=== PATIENT | female | born 1965 | race Caucasian/White ===

== ENCOUNTER 2021-08-08 10:42 | Observation (INO) | payer BC ==
[~2021-08-08] VITALS: Ht 165.1 cm; Wt 92.5 kg
[2021-08-08] MEDS ORDERED: NS 2,830 ML in IV 1 EA IV ONE (11:15)
[2021-08-08] MEDS ORDERED: cefTRIAXone SOD 2 GM in D5W MINI-BAG PLUS 50 ML IV ONE (11:15)
[2021-08-08 11:19] LABS: VENOUS BASE EXCESS -0.9 (-2.0-2.0); VENOUS HCO3 21.6 MEQ/L (23.0-27.0); VENOUS O2 SATURATION 87.9 % (60.0-80.0); VENOUS PARTIAL PRESSURE CO2 30.5 mmHg (38.0-50.0); VENOUS PARTIAL PRESSURE O2 50.8 mmHg (30.0-50.0); VENOUS PH 7.469 UNITS (7.330-7.430); VENOUS STANDARD HCO3 23.5 MEQ/L; VENOUS TOTAL CO2 22.6 MEQ/L (24.0-28.0)
--- NOTE | 2021-08-08 11:21 | REP ---
INDICATION: DYSPNEA/COUGH COMPARISON: None. TECHNIQUE: Portable AP view of the chest FINDINGS: The mediastinum and cardiac silhouette are within normal limits for portable technique. The lung higgins are clear without acute consolidation, effusion, or pneumothorax. Skeletal structures are intact. IMPRESSION: No acute cardiopulmonary process appreciated. <Electronically signed by El Navarro > 08/08/21 1119
[2021-08-08 11:26] LABS: BASO # 0.1 10^3/uL (0.0-0.2); BASO % 0.5 % (0.0-1.0); EOS % 0.4 % (0.0-3.0); HEMOGLOBIN 14.4 g/dl (12.0-15.5); LYMPH # 1.1 10^3/uL (1.5-5.0); LYMPH % 11.4 % (24.0-44.0); MEAN CORPUSCULAR HEMOGLOBIN 31.2 pg (27.0-33.0); MEAN CORPUSCULAR HGB CONC 34.3 g/dl (32.0-36.5); MEAN CORPUSCULAR VOLUME 90.9 fl (80.0-96.0); MONO # 1.4 10^3/uL (0.0-0.8); NEUTROPHILS # 6.9 10^3/uL (1.5-8.5); NEUTROPHILS % 72.1 % (36.0-66.0); PLATELET COUNT, AUTOMATED 261 10^3/uL (150-450); RED BLOOD COUNT 4.62 10^6/uL (4.00-5.40); WHITE BLOOD COUNT 9.6 10^3/uL (4.0-10.0)
[2021-08-08 11:55] LABS: RSV AMPLIFICATION NEGATIVE (NEGATIVE)
[2021-08-08 11:57] LABS: ALBUMIN 3.6 GM/DL (3.2-5.2); ALT/SGPT 30 U/L (12-78); BILIRUBIN,DIRECT 0.2 MG/DL (0.0-0.2); BILIRUBIN,TOTAL 0.6 MG/DL (0.2-1.0); BLOOD UREA NITROGEN 9 MG/DL (7-18); CALCIUM LEVEL 8.6 MG/DL (8.5-10.1); CARBON DIOXIDE LEVEL 21 MEQ/L (21-32); CHLORIDE LEVEL 109 MEQ/L (98-107); CREATININE FOR GFR 0.94 MG/DL (0.55-1.30); GLOMERULAR FILTRATION RATE > 60.0 (>51); GLUCOSE, FASTING 206 MG/DL (70-100); POTASSIUM SERUM 3.7 MEQ/L (3.5-5.1); SODIUM LEVEL 140 MEQ/L (136-145); THYROID STIMULATING HORMONE 0.014 uIU/ML (0.358-3.740); TOTAL PROTEIN 6.9 GM/DL (6.4-8.2)
[2021-08-08] MEDS: METOPROLOL 5 MG/5 ML VIAL IV SCH ×3 (13:07→13:51)
[2021-08-08 13:51] VITALS: BP 117/59
--- NOTE | 2021-08-08 15:32 | REP ---
INDICATION: weak COMPARISON: None. TECHNIQUE: Axial noncontrast images from the skull base to the vertex with coronal reformations. This CT examination was performed using the following dose reduction techniques: Automated exposure control, adjustment of mA and/or kv according to the patient's size, and use of iterative reconstruction technique. FINDINGS: The ventricles, sulci, and cisterns are normal in position and appearance. Tamayo-white differentiation is maintained. No acute intracranial hemorrhage, mass/mass effect, pathology or trauma/injury. No evidence for acute infarction. No extra-axial fluid collection. Calvarium is intact. IMPRESSION: Normal noncontrast head CT. No evidence for acute intracranial pathology or trauma/injury. <Electronically signed by El Navarro > 08/08/21 [id number]
[2021-08-08] MEDS ORDERED: GLUCOSE 4GM CHEW TABLET PO PRN (16:50)
[2021-08-08] MEDS ORDERED: GLUCAGON INJ 1MG VIAL SC PRN (16:50)
[2021-08-08] MEDS ORDERED: DEXTROSE 50% 50 ML SYRINGE IV PRN (16:50)
[2021-08-08] MEDS ORDERED: ONDANSETRON 4MG/2ML VIAL IV PRN (16:50)
[2021-08-08 17:21] LABS: INR 1.06; PROTHROMBIN TIME 14.2 SECONDS (12.7-14.5)
[2021-08-08 17:22] LABS: ALT/SGPT 26 U/L (12-78); BILIRUBIN,DIRECT < 0.1 MG/DL (0.0-0.2); BILIRUBIN,TOTAL 0.4 MG/DL (0.2-1.0); C REACTIVE PROTEIN QUANTITATIV 6.57 MG/DL (0.00-0.30); FERRITIN 186 NG/ML (8-252); NT-PRO BNP 2119 PG/ML (<125); PARTIAL THROMBOPLASTIN TIME 35.2 SECONDS (25.9-37.0); TOTAL PROTEIN 6.4 GM/DL (6.4-8.2)
[2021-08-08 17:23] LABS: C REACTIVE PROTEIN QUANTITATIV 6.9 MG/DL (0.00-0.30); MAGNESIUM LEVEL 2.1 MG/DL (1.8-2.4)
[2021-08-08 17:24] LABS: D-DIMER QUANT 1059.23 ng/ml (<500)
[2021-08-08] MEDS: HumaLOG INSULIN (NovoLOG) PER UNIT SC SCH ×2 (17:30→21:00)
[2021-08-08 17:34] LABS: MAGNESIUM LEVEL 2.1 MG/DL (1.8-2.4)
--- NOTE | 2021-08-08 17:41 | HPEPDOC ---
[facility] Medical History & Physical Date of Admission Aug 08, 2021 Date of Service: Aug 08, 2021 Attending Physician: SEBASTIEN LORA MD History and Physical CHIEF COMPLAINT: generalized weakness, dry mouth, poor PO HISTORY OF PRESENT ILLNESS: 56 yo W with a history of a pituitary tumor s/p resection not clear on the subtype, history of thyroid CA s/p thyroidectomy, likely diabetes insipidus? with cousin reporting that she is on a pill to not make her urinate so much, gastric CA s/p debulking on imatinib with patient reported dramatic reduction in tumor per her oncologist, chronic lethargy at baseline, hypothyroidism, DM and obesity who is in [place] visiting her elderly parents who live in the area for the holidays and develops generalized illness, malaise, dry mouth and diarrhea 1-2 days ago with poor PO and was eventually brought in by family. Of note, she is vaccinated for the flu, pneumovax and covid-19 but had not had her booster yet. She denies any shortness of breath, chest pain, sensation of palpitations, abdominal pain. She endorsed some nausea, had 1 non bloody non bilious emesis episode this morning, has had some non bloody diarrhea, feels weak and sleepier than her usual. In the ED, she was tachycardic to 130-150s but otherwise hemodynamically stable and per Dr. James had a spurious temp of 102 that was on immediate recheck actually wnl without a fever, normotensive and saturating well on room air. Workup was notable for respiratory panel that was positive for covid-19, CXR that was wnl without any noted effusion, infiltrates or airway disease and head C whose read is still pending but appears unremarkable on my wet read. WBC was 9.6, hgb 14.4, platelets 261, na 140, K 3.7, Cr 0.94, TSH 0.014. VBG showed a pH of 7.46. She was given 2.5L of IVF with improvement in her tachycardia as well as 1 dose of lopressor with improvement to 110s -120s. On EKG she appears to have a narrow complex junctional tachycardia and Dr. James spoke with Dr. Peck who also took a look at the EKG and recommended treating the underlying cause such as dehydration and viral infection. On my evaluation, she is lethargic but oriented fully and I am told by her cousin that is close to her baseline though she is more tired than usual. I am now admitting her to medicine for covid-19 infection with associated dehydration and encephalopathy. PAST MEDICAL HISTORY: pituitary tumor s/p resection not clear on the subtype, history of thyroid CA s/p thyroidectomy, likely diabetes insipidus? with cousin reporting that she is on a pill to not make her urinate so much, gastric CA s/p debulking on imatinib with patient reported dramatic reduction in tumor per her oncologist, chronic lethargy at baseline, hypothyroidism and obesity PAST SURGICAL HISTORY: Hysterectomy. has one ovary left. gastric tumor debulking thyroidectomy Pituitary tumor resection SOCIAL HISTORY: Marital status: Resides in: [place] Children: 2 Tobacco use: No ETOH: Rare Illicit drug use: No FAMILY HISTORY: Father: 84yo, has COPD, otherwise with some mild cognitive slowing Mother: in her 80s, healthy ALLERGIES: Please see below. REVIEW OF SYSTEMS: 10 point ROS was negative except for the discussed elements in the HPI. HOME MEDICATIONS: Please see below. PHYSICAL EXAMINATION: VITAL SIGNS: see below GENERAL APPEARANCE: Lethargic, awake on voice but requiring prompting and re- asking of questions as she falls asleep HEENT: NCAT, EOMI, dry MM, PERRLA CARDIOVASCULAR: regular rhythm, tachycardic, no noted m/r/g LUNGS: CTAB, no crackles, wheezing or rhonchi ABDOMEN: Obese, normoactive sounds, soft, NTND MUSCULOSKELETAL: 5/5 strength in all 4 limbs EXTREMITIES: WWP, no edema NEUROLOGICAL: CN3-12 intact, lethargic but full strength with encouragement, clear speech PSYCHIATRIC: AOx3 LABORATORY DATA: Reviewed above, see below for full details IMAGING: Reviewed above. CT head read: The ventricles, sulci, and cisterns are normal in position and appearance. Tamayo-white differentiation is maintained. No acute intracranial hemorrhage, mass/mass effect, pathology or trauma/injury. No evidence for acute infarction. No extra-axial fluid collection. Calvarium is intact. IMPRESSION: Normal noncontrast head CT. No evidence for acute intracranial pathology or trauma/injury. MICROBIOLOGY: Please see below. ASSESSMENT: 56 yo W with a history of a pituitary tumor s/p resection not clear on the subtype, history of thyroid CA s/p thyroidectomy, likely SIADH with cousin reporting that she is on a pill to not make her urinate so much, gastric CA s/p debulking on imatinib with patient reported dramatic reduction in tumor per her oncologist, chronic lethargy at baseline, hypothyroidism, DM and obesity who is in [place] visiting her elderly parents who live in the area for the holidays and develops generalized illness, malaise, dry mouth and diarrhea 1-2 days ago with poor PO and is now being admitted for covid-19 infection with associated dehydration and encephalopathy with a narrow complex tachycardia. PLAN: Covid-19 infection: -droplet precaution -no pulmonary symptoms at this time -s/p 30cc/kg IVF bolus, continue NS at 100cc/hr -covid labs per protocol -lovenox 40 SC QD for DVT ppx -ASA 81 QD -s/p ceftriaxone in the ED. No suspicion of bacterial infection. f/u BCx, UA/UCx. No further antibiotics at this time. -vaccinated x 2 shots, pending booster Dehydration: -s/p 30cc/kg IVF bolus, continue NS at 100cc/hr -might have a history of Diabetes insipidus? Inferred from history given by cousin sister: To confirm med rec promptly to restart med as delay of med will precipitate continuation of dehydration nomatter the hydration efforts. Suspect that she may be on a DDAVP type of med DM: -SSI -FSBG ACHS -hypoglycemia protocol -Hgb a1c Gastric CA: -continue imatinib, after med rec is complete History of Diabetes insipidus? (I imagine s/p pituitary surgery) Inferred from history given by cousin sister: -Confirm med rec promptly to restart med as delay of med will precipitate continuation of dehydration despite any hydration efforts. Suspect that she may be on a DDAVP type of med Hypothyroidism: -to resume levothyroxine once med rec is complete Vital Signs Vital Signs Date Time Temp Pulse Resp B/P (MAP) Pulse Ox O2 Delivery O2 Flow Rate FiO2 08/08/21 13:51 149 117/59 08/08/21 13:00 95 08/08/21 11:15 99.3 08/08/21 10:43 18 Room Air Laboratory Data Labs 24H Laboratory Tests 2 08/08/21 11:09: Immature Granulocyte % (Auto) 0.6, Neutrophils (%) (Auto) 72.1H, Lymphocytes (%) (Auto) 11.4L, Monocytes (%) (Auto) 15.0H, Eosinophils (%) (Auto) 0.4, Basophils (%) (Auto) 0.5, Neutrophils # (Auto) 6.9, Lymphocytes # (Auto) 1.1L, Monocytes # (Auto) 1.4H, Eosinophils # (Auto) 0.0, Basophils # (Auto) 0.1, Nucleated Red Blood Cells % (auto) 0.0, Blood Gas Bicarbonate Standard 23.5, Venous Blood pH 7.469H, Venous Blood Partial Pressure CO2 30.5L, Venous Blood Partial Pressure O2 50.8H, Venous Blood Total Carbon Dioxide 22.6L, Venous Blood HCO3 21.6L, Venous Blood Oxygen Saturation 87.9H, Venous Blood Base Excess -0.9, Anion Gap 10, Glomerular Filtration Rate > 60.0, Calcium Level 8.6, Total Bilirubin 0.6, Direct Bilirubin 0.2, Aspartate Amino Transf (AST/SGOT) 26, Alanine Aminotransferase (ALT/SGPT) 30, Alkaline Phosphatase 78, Total Protein 6.9, Albumin 3.6, Albumin/Globulin Ratio 1.1L, Thyroid Stimulating Hormone (TSH) 0.014L 08/08/21 11:11: Lactic Acid Level 1.2, Coronavirus (COVID-19)(PCR) POSITIVEA, Influenza Type A (RT-PCR) NEGATIVE, Influenza Type B (RT-PCR) NEGATIVE, Respiratory Syncytial Virus (PCR) NEGATIVE 08/08/21 11:25: POC Troponin I (Misc) 0.01 08/08/21 16:44: CBC/BMP Laboratory Tests 08/08/21 11:09 Microbiology Microbiology 08/08/21 Blood Culture, Received Pending 08/08/21 Blood Culture, Received Pending Allergies Coded Allergies: erythromycin base (Verified Allergy, Unknown, 08/08/21) A-FIB/CHADSVASC A-FIB History Current/History of A-Fib/PAF?: No Current PO Anticoag Therapy: No Age/Risk Factor Scoring CHADSVASC: CHADSVASC Response (Comments) Value Age Risk Factor Age < 65 years old 0 Gender Risk Factor Female 1 Hx of CHF No 0 Hx of HTN No 0 Hx of Stroke/TIA/or VTE No 0 Hx of Diabetes No 0 Hx of Vascular Disease No 0 Total 1 Treatment Treatment ordered: NONE Reason Anticoagulant not given: Not indicated/[id number] SEBASTIEN LORA MD Aug 08, 2021 17:41
[2021-08-08] MEDS ORDERED: IMAT100T PO (17:59)
[2021-08-08] MEDS ORDERED: TRES1INJ SC (17:59)
[2021-08-08] MEDS ORDERED: SYNT112T2 PO (17:59)
[2021-08-08] MEDS ORDERED: MED NOTE (17:59)
[2021-08-08] MEDS ORDERED: HUMA100I5 SC (17:59)
[2021-08-08] MEDS ORDERED: LOSA25TA14 PO (17:59)
[2021-08-08] MEDS ORDERED: DESM0.1T2 PO (17:59)
[2021-08-08] MEDS ORDERED: HOME MED LIST COMPLETE! XX SCH (18:00)
--- NOTE | 2021-08-08 18:01 | ECGEPIP ---
[facility] - ED Test Date: 2021-08-08 Pat Name: ROSSY GUAJARDO Department: Room: - Gender: Female Piecer Up: MOOKIE : 1965 Requested By: Eleni Ramsey Order Number: [id number] Reading MD: Eleni Ramsey Measurements Intervals [place] Rate: 160 P: [place]: QRS: -72 QRSD: 84 T: 25 QT: 316 QTc: 515 Interpretive Statements narrow complex tachycardia Left anterior fascicular block Cannot rule out Inferior infarct (masked by fascicular block?) , age undetermined Possible Anterior infarct , age undetermined prolonged qtc NSTTW abnormalities No prior Electronically Signed on 08-08-2021 18:01:31 EST by Eleni Ramsey
--- NOTE | 2021-08-08 18:02 | ECGEPIP ---
[facility] - ED Test Date: 2021-08-08 Pat Name: ROSSY GUAJARDO Department: Room: - Gender: Female Resident Programs Assistant: FLAVIA : 1965 Requested By: Eleni Ramsey Order Number: [id number] Reading MD: Eleni Ramsey Measurements Intervals [place] Rate: 151 P: [place]: QRS: -72 QRSD: 82 T: 29 QT: 330 QTc: 523 Interpretive Statements narrow complex tachycardia Left axis deviation Inferior infarct , age undetermined Possible Anterior infarct , age undetermined NSTTW abnormalities similar 08/08/21 11:06 Electronically Signed on 08-08-2021 18:02:16 EST by Eleni Ramsey
--- NOTE | 2021-08-08 18:03 | ECGEPIP ---
[facility] - ED Test Date: 2021-08-08 Pat Name: ROSSY GUAJARDO Department: Room: - Gender: Female Dealer Analyst: FLAVIA : 1965 Requested By: Eleni Ramsey Order Number: [id number] Reading MD: Eleni Ramsey Measurements Intervals [place] Rate: 126 P: [place]: QRS: -72 QRSD: 86 T: 19 QT: 360 QTc: 521 Interpretive Statements narrow complex tachycardia Left axis deviation Inferior infarct , age undetermined Anterior infarct , age undetermined NSTTW abnormalities decreased rate 08/08/21/12:31 Electronically Signed on 08-08-2021 18:03:16 EST by Eleni Ramsey
[2021-08-08 18:08] LABS: ABG BASE EXCESS -2.7 (-2.0-2.0); ABG HCO3 19.9 MEQ/L (22.0-26.0); ABG O2 SATURATION 94.4 % (95.0-99.0); ABG PARTIAL PRESSURE CO2 29.3 mmHg (35.0-45.0); ABG PARTIAL PRESSURE O2 69.6 mmHg (75.0-100.0); ABG STANDARD HCO3 22.1 MEQ/L (22.0-26.0); ABG TOTAL CO2 20.8 MEQ/L (22.0-29.0)
[2021-08-08 20:00] VITALS: BP 114/58
[2021-08-08] MEDS: NS 1,000 ML IV SCH (21:26)
[2021-08-08] MEDS: ENOXAPARIN 40MG/0.4ML SYRINGE (J1650 PER 10MG) SC SCH (21:26)
[2021-08-08] MEDS: ACETAMINOPHEN TAB 650MG DOSE (2X325MG) PO PRN (21:28)
[2021-08-09] VITALS (7 sets, daily range): BP systolic 95–138; BP diastolic 54–79; O2SAT 94–97
[2021-08-09] MEDS: NS 1,000 ML IV SCH ×3 (02:57→16:27)
[2021-08-09 03:02] LABS: APPEARANCE, URINE CLEAR (CLEAR); BACTERIA, URINE AUTO NEGATIVE (NEGATIVE); BILIRUBIN, URINE AUTO NEGATIVE (NEGATIVE); BLOOD, URINE BLOOD NEGATIVE (NEGATIVE); COLOR, URINE YELLOW (YELLOW); GLUCOSE, URINE (UA) AUTO NEGATIVE (NEGATIVE); KETONE, URINE AUTO 1+ mg/dL (NEGATIVE); LEUKOCYTE ESTERASE, URINE AUTO NEGATIVE (NEGATIVE); MUCUS, URINE SMALL (NEGATIVE); NITRITE, URINE AUTO NEGATIVE (NEGATIVE); PROTEIN, URINE AUTO NEGATIVE (NEGATIVE); RBC, URINE AUTO 1 /HPF (0-3); SPECIFIC GRAVITY URINE AUTO 1.014 (1.002-1.035); SQUAMOUS EPITHELIAL CELL UR AU 1 /HPF (0-6); UROBILINOGEN, URINE AUTO 0.2 mg/dL (0.0-2.0); WBC, URINE AUTO 3 /HPF (0-3)
[2021-08-09] MEDS ORDERED: PILL CUTTER 1 EACH XX PRN (08:15)
[2021-08-09] MEDS: LEVOTHYROXINE 112MCG TABLET (0.112MG) PO SCH (08:56)
[2021-08-09] MEDS: HumaLOG INSULIN (NovoLOG) PER UNIT SC SCH ×4 (08:56→20:24)
[2021-08-09] MEDS: ASPIRIN 81MG ENTERIC TABLET PO SCH (08:56)
[2021-08-09] MEDS ORDERED: DESMOPRESSIN ACETATE 0.1 MG TAB PO SCH ×2 (09:00→21:00)
[2021-08-09] MEDS ORDERED: IMATINIB 100 MG PO SCH (09:00)
[2021-08-09 09:50] LABS: BASO % 0.6 % (0.0-1.0); EOS % 0.8 % (0.0-3.0); HEMATOCRIT 40.3 % (36.0-47.0); HEMOGLOBIN 13.4 g/dl (12.0-15.5); LYMPH # 1.6 10^3/uL (1.5-5.0); LYMPH % 30.2 % (24.0-44.0); MEAN CORPUSCULAR HEMOGLOBIN 31.7 pg (27.0-33.0); MEAN CORPUSCULAR HGB CONC 33.3 g/dl (32.0-36.5); MEAN CORPUSCULAR VOLUME 95.3 fl (80.0-96.0); MONO # 0.8 10^3/uL (0.0-0.8); MONO % 15.7 % (2.0-8.0); NEUTROPHILS # 2.7 10^3/uL (1.5-8.5); NEUTROPHILS % 51.9 % (36.0-66.0); PLATELET COUNT, AUTOMATED 214 10^3/uL (150-450); RED BLOOD COUNT 4.23 10^6/uL (4.00-5.40); WHITE BLOOD COUNT 5.2 10^3/uL (4.0-10.0)
[2021-08-09 10:10] LABS: BLOOD UREA NITROGEN 11 MG/DL (7-18); CALCIUM LEVEL 7.8 MG/DL (8.5-10.1); CARBON DIOXIDE LEVEL 23 MEQ/L (21-32); CHLORIDE LEVEL 110 MEQ/L (98-107); GLOMERULAR FILTRATION RATE > 60.0 (>51); GLUCOSE, FASTING 206 MG/DL (70-100); MAGNESIUM LEVEL 2.3 MG/DL (1.8-2.4); POTASSIUM SERUM 3.9 MEQ/L (3.5-5.1); SODIUM LEVEL 140 MEQ/L (136-145)
[2021-08-09] MEDS ORDERED: DESM0.1T2 PO (13:42)
[2021-08-09] MEDS: DESMOPRESSIN ACETATE 0.1 MG TAB PO SCH (14:08)
--- NOTE | 2021-08-09 15:41 | IPNPDOC ---
Text Note Date of Service The patient was seen on 08/09/21. NOTE SUBJECTIVE: -No acute complaints this morning -More awake this morning VITAL SIGNS: see below GENERAL APPEARANCE: NAD, HEENT: NCAT, EOMI, dry MM, PERRLA CARDIOVASCULAR: regular rhythm, tachycardic, no noted m/r/g LUNGS: CTAB, no crackles, wheezing or rhonchi ABDOMEN: Obese, normoactive sounds, soft, NTND MUSCULOSKELETAL: 5/5 strength in all 4 limbs EXTREMITIES: WWP, no edema NEUROLOGICAL: CN3-12 intact, clear speech PSYCHIATRIC: AOx3 LABORATORY DATA: Reviewed, has pending AM labs IMAGING: Reviewed above. CT head read: The ventricles, sulci, and cisterns are normal in position and appearance. Tamayo- white differentiation is maintained. No acute intracranial hemorrhage, mass/mass effect, pathology or trauma/injury. No evidence for acute infarction. No extra-axial fluid collection. Calvarium is intact. IMPRESSION: Normal noncontrast head CT. No evidence for acute intracranial pathology or trauma/injury. MICROBIOLOGY: Please see below. ASSESSMENT: 56 yo W with a history of a pituitary tumor s/p resection not clear on the subtype, history of thyroid CA s/p thyroidectomy, likely SIADH with cousin reporting that she is on a pill to not make her urinate so much, gastric CA s/p debulking on imatinib with patient reported dramatic reduction in tumor per her oncologist, chronic lethargy at baseline, hypothyroidism, DM and obesity who is in [place] visiting her elderly parents who live in the area for the holidays and develops generalized illness, malaise, dry mouth and diarrhea 1-2 days ago with poor PO and is now being admitted for covid-19 infection with associated dehydration and encephalopathy with a narrow complex tachycardia. PLAN: Covid-19 infection: -droplet precaution -no pulmonary symptoms at this time -s/p 30cc/kg IVF bolus, continue NS at 100cc/hr. To restart her DDAVP this AM -covid labs per protocol -lovenox 40 SC QD for DVT ppx -ASA 81 QD -s/p ceftriaxone in the ED. No suspicion of bacterial infection. f/u BCx, UA/UCx. No further antibiotics at this time. -vaccinated x 2 shots, pending booster Acute on chronic encephalopathy: -2/2/ covid-19 infection and dehydration, improving Dehydration: -s/p 30cc/kg IVF bolus, continue NS at 100cc/hr -Confirmed DDAVP, restart this AM -strict I/Os, daily weights DM: -SSI -FSBG ACHS -hypoglycemia protocol -Hgb a1c -waiting to confirm tresiba dose this AM, poor PO so for now there is no de [place]. Gastric CA: -continue imatinib Diabetes insipidus(I imagine s/p pituitary surgery) Inferred from history given by cousin sister: -Confirmed DDAVP, restart this AM Hypothyroidism: -resume levothyroxine -check free T4 given the low TSH VS,Fishbone, I+O VS, Fishbone, I+O Laboratory Tests 08/08/21 11:09 Vital Signs Date Time Temp Pulse Resp B/P (MAP) Pulse Ox O2 Delivery O2 Flow Rate FiO2 08/09/21 04:00 98.0 96 20 95/61 (72) 96 Room Air I&O- Last 24 Hours up to 6 AM 08/09/21 06:00 Intake Total 0 ml Output Total 150 ml Balance -150 ml SEBASTIEN LORA MD Aug 09, 2021 08:14
[2021-08-09] MEDS ORDERED: LOPE2CA PO (16:16)
[2021-08-09] MEDS ORDERED: ASPI-551 PO (16:16)
[2021-08-09] MEDS ORDERED: ONDA-83 PO (16:16)
[2021-08-09] MEDS: ENOXAPARIN 40MG/0.4ML SYRINGE (J1650 PER 10MG) SC SCH (20:23)
[2021-08-09] MEDS: ACETAMINOPHEN TAB 650MG DOSE (2X325MG) PO PRN (20:24)
[2021-08-10] VITALS: BP 115/58
[2021-08-10 00:05] VITALS: O2SAT 99
[2021-08-10] MEDS: NS 1,000 ML IV SCH (02:05)
[2021-08-10 04:30] VITALS: O2SAT 98
[2021-08-10] MEDS: ACETAMINOPHEN TAB 650MG DOSE (2X325MG) PO PRN (04:57)
[2021-08-10] MEDS: LEVOTHYROXINE 112MCG TABLET (0.112MG) PO SCH (04:57)
--- NOTE | 2021-08-10 06:22 | DS.PDOC ---
Discharge Summary General Date of Admission Aug 08, 2021 at 10:43 Date of Discharge 08/10/2021 Attending Physician: SEBASTIEN LORA MD Discharge Summary PROCEDURES PERFORMED DURING STAY: None ADMITTING DIAGNOSES: Covid-19 infection Dehydration Junctional narrow complex tachycardia DISCHARGE DIAGNOSES: Covid-19 infection Dehydration Junctional narrow complex tachycardia pituitary tumor s/p resection not clear on the subtype history of thyroid CA s/p thyroidectomy Diabetes insipidus Gastric CA s/p debulking on imatinib Chronic lethargy Hypothyroidism Obesity COMPLICATIONS/CHIEF COMPLAINT: Covid 19 Tachycardia. HISTORY OF PRESENT ILLNESS: 56 yo W with a history of a pituitary tumor s/p resection not clear on the subtype, history of thyroid CA s/p thyroidectomy, diabetes insipidus, gastric CA s/p debulking on imatinib with patient reported dramatic reduction in tumor, chronic lethargy at baseline, hypothyroidism, DM and obesity who was in [place] visiting her elderly parents who live in the area for the holidays and developed generalized illness, malaise, dry mouth and diarrhea 1-2 days prior to admission with poor PO and was eventually brought in by family. Of note, she is vaccinated for the flu, pneumovax and covid-19 but had not had her booster yet. She denied any shortness of breath, chest pain, sensation of palpitations, abdominal pain. She endorsed some nausea, had 1 non bloody non bilious emesis episode on the morning of presentation and has had some non bloody diarrhea, felt weak and sleepier than her usual. HOSPITAL COURSE: In the ED, she was tachycardic to 130-150s but otherwise hemodynamically stable and per Dr. James had a spurious temp of 102 that was on immediate recheck actually wnl without a fever, normotensive and saturating well on room air. Workup was notable for respiratory panel that was positive for covid-19, CXR that was wnl without any noted effusion, infiltrates or airway disease and head CT that did not show acute bleeding, mass effect, ventriculomegaly or acute infarct. WBC was 9.6, hgb 14.4, platelets 261, na 140, K 3.7, Cr 0.94, TSH 0.014. VBG showed a pH of 7.46. She was given 2.5L of IVF with improvement in her tachycardia as well as 1 dose of lopressor with improvement to 110s -120s. On EKG she had a narrow complex junctional tachycardia and Dr. James spoke with Dr. Peck (cardiology) who also took a look at the EKG and recommended treating the underlying cause such as dehydration and viral infection. On my evaluation, she was lethargic but oriented fully and I am told by her cousin that is close to her baseline though she was more tired than usual. I admitted her to medicine for covid-19 infection with associated dehydration and encephalopathy. She received IVF at 30cc/kg bolus and 100cc/hr thereafter while also resuming her DDAVP which improved her soft BPs and dehydrated state. Tac hycardia resolved, alertness improved and she remained stable on room air without any pulmonary complaints. While inpatient, I heard from her cousin that her oncologist had reached out to her to discuss a recent brain MRI. Thankfully her neurological examination remained benign and I recommended that she reaches out promptly for a prompt follow up on return home to [place], where she returns today as I discharge her. I am now discharging her home with recommendation to continue self isolation, masking, good infection control hygiene and call her oncologist for MRI scan update and follow up appointment, as well have a post discharge follow up with her GP within 7d. DISCHARGE MEDICATIONS: Please see below. ALLERGIES: Please see below. PHYSICAL EXAMINATION ON DISCHARGE: VITAL SIGNS: Please see below. GENERAL APPEARANCE: NAD, awake, alert HEENT: NCAT, EOMI, MMM, PERRLA CARDIOVASCULAR: RRR, no noted m/r/g LUNGS: CTAB, no crackles, wheezing or rhonchi ABDOMEN: Obese, normoactive sounds, soft, NTND MUSCULOSKELETAL: 5/5 strength in all 4 limbs EXTREMITIES: WWP, no edema NEUROLOGICAL: CN3-12 intact, 5/5 full strength and tone in all 4 extremities, clear speech PSYCHIATRIC: AOx3 LABORATORY DATA: Please see below. IMAGING: CT head read: The ventricles, sulci, and cisterns are normal in position and appearance. Tamayo- white differentiation is maintained. No acute intracranial hemorrhage, mass/mass effect, pathology or trauma/injury. No evidence for acute infarction. No extra-axial fluid collection. Calvarium is intact. IMPRESSION: Normal noncontrast head CT. No evidence for acute intracranial pathology or trauma/injury. MICROBIOLOGY: Please see below. CXR: The mediastinum and cardiac silhouette are within normal limits for portable technique. The lung higgins are clear without acute consolidation, effusion, or pneumothorax. Skeletal structures are intact. IMPRESSION: No acute cardiopulmonary process appreciated. PROGNOSIS: Good ACTIVITY: As tolerated DIET: Consistent carb DISCHARGE PLAN: Home with prompt oncology and PCP follow up. DISPOSITION: Home DISCHARGE INSTRUCTIONS: Recommendation to continue self isolation, masking, good infection control hygiene and call her oncologist for MRI scan update and follow up appointment, as well have a post discharge follow up with her GP within 7d. ITEMS TO FOLLOWUP ON ON OUTPATIENT: Covid-19 infection gastric CA pituitary tumor history DISCHARGE CONDITION: Stable TIME SPENT ON DISCHARGE: 48 minutes. Vital Signs/I&Os Vital Signs Date Time Temp Pulse Resp B/P (MAP) Pulse Ox O2 Delivery O2 Flow Rate FiO2 08/09/21 12:00 97 Room Air 08/09/21 12:00 97.9 99 19 120/58 (78) I&O- Last 24 Hours up to 6 AM 08/09/21 06:00 Intake Total 0 ml Output Total 150 ml Balance -150 ml Laboratory Data Labs 24H Laboratory Tests 2 08/08/21 16:43: Estimated Mean Plasma Glucose 154H, Hemoglobin A1c 7.0 08/08/21 16:44: Prothrombin Time 14.2H, Prothromb Time International Ratio 1.06, Activated Partial Thromboplast Time 35.2, Fibrinogen 430, D-Dimer, Quantitative 1059.23H, Magnesium Level 2.1, Ferritin 186, Total Bilirubin 0.4, Direct Bilirubin < 0.1, Aspartate Amino Transf (AST/SGOT) 25, Alanine Aminotransferase (ALT/SGPT) 26, Alkaline Phosphatase 66, Lactate Dehydrogenase 237, C-Reactive Protein, Quantitative 6.57H, WD-Tzf-Y-Type Natriuretic Peptide 2119H, Total Protein 6.4, Albumin 3.0L, Albumin/Globulin Ratio 0.9L, Procalcitonin 0.27 08/08/21 17:19: Bedside Glucose (Misc Panel) 174H 08/08/21 17:57: Blood Gas Bicarbonate Standard 22.1, Arterial Blood pH 7.450, Arterial Blood Partial Pressure CO2 29.3L, Arterial Blood Partial Pressure O2 69.6L, Arterial Blood Total CO2 20.8L, Arterial Blood HCO3 19.9L, Arterial Blood Base Excess - 2.7L, Arterial Blood Oxygen Saturation 94.4L 08/08/21 20:25: Bedside Glucose (Misc Panel) 220H 08/09/21 02:36: Urine Color YELLOW, Urine Appearance CLEAR, Urine pH 5.0, Urine Specific [place] 1.014, Urine Protein NEGATIVE, Urine Glucose (Auto)(UA) NEGATIVE, Urine Ketones (Auto) 1+H, Urine Blood NEGATIVE, Urine Nitrite NEGATIVE, Urine Bilirubin NEGATIVE, Urine Urobilinogen 0.2, Urine Leukocyte Esterase (Auto) NEGATIVE, Urine WBC (Auto) 3, Urine RBC (Auto) 1, Urine Hyaline Casts (Auto) 0, Urine Bacteria (Auto) NEGATIVE, Urine Squamous Epithelial Cells 1, Urine Mucus (Auto) SMALL, Urine Sperm (Auto) 08/09/21 06:00: Bedside Glucose (Misc Panel) 164H 08/09/21 08:43: Immature Granulocyte % (Auto) 0.8, Neutrophils (%) (Auto) 51.9, Lymphocytes (%) (Auto) 30.2, Monocytes (%) (Auto) 15.7H, Eosinophils (%) (Auto) 0.8, Basophils (%) (Auto) 0.6, Neutrophils # (Auto) 2.7, Lymphocytes # (Auto) 1.6, Monocytes # (Auto) 0.8, Eosinophils # (Auto) 0.0, Basophils # (Auto) 0.0, Nucleated Red Blood Cells % (auto) 0.0, Anion Gap 7L, Glomerular Filtration Rate > 60.0, Calcium Level 7.8L, Magnesium Level 2.3, Free Thyroxine 1.19 08/09/21 12:04: Bedside Glucose (Misc Panel) 123H CBC/BMP Laboratory Tests 08/09/21 08:43 FSBS Laboratory Tests Test 08/08/21 17:19 08/08/21 20:25 08/09/21 06:00 08/09/21 12:04 Range/Units Bedside Glucose (Misc Panel) 174 220 164 123 70-105 MG/DL Microbiology Microbiology 08/08/21 Blood Culture - Preliminary, Resulted No growth after 24 hours . All specim... 08/08/21 Blood Culture - Preliminary, Resulted No growth after 24 hours . All specim... Discharge Medications Scheduled Aspirin (Aspirin EC) 81 Mg Tablet.dr, 81 MG PO DAILY Desmopressin Acetate (Desmopressin Acetate) 0.1 Mg Tablet, 0.1 MG PO DAILY, (Reported) Desmopressin Acetate (Desmopressin Acetate) 0.1 Mg Tablet, 0.05 MG PO QPM, (Reported) Imatinib Mesylate (Imatinib Mesylate) 100 Mg Tablet, 100 MG PO BID, (Reported) Insulin Degludec (Tresiba Flextouch U-200) 200 Unit/1 Ml Insuln.pen, 50 UNITS SC QAM, (Reported) Insulin Lispro (Humalog Kwikpen U-100) 100 Unit/1 Ml Insuln.pen, 18 UNITS SC AC, (Reported) PER SLIDING SCALE Levothyroxine Sodium (Synthroid) 112 Mcg Tablet, 112 MCG PO DAILY, (Reported) Scheduled PRN Loperamide HCl (Anti-Diarrheal) 2 Mg Tablet, 2 MG PO ASDIRECTED PRN for DIARRHEA Ondansetron HCl (Ondansetron HCl) 4 Mg Tablet, 1 TAB PO Q4HP PRN for nausea/vomiting Miscellaneous Medications [Med Note] , (Reported) NURSE LOOKED AT MEDS, NO BOTTLES JUST PILLS IN THE PILL BOX, GOING OFF EXTERNAL. PHARMACY IS CLOSED TO CALL Allergies Coded Allergies: erythromycin base (Verified Allergy, Unknown, 08/08/21) SEBASTIEN LORA MD Aug 09, 2021 16:13
[2021-08-10 06:53] LABS: BASO % 0.2 % (0.0-1.0); EOS # 0.1 10^3/uL (0.0-0.5); EOS % 3.5 % (0.0-3.0); HEMATOCRIT 32.6 % (36.0-47.0); LYMPH # 1.3 10^3/uL (1.5-5.0); LYMPH % 32.6 % (24.0-44.0); MEAN CORPUSCULAR HEMOGLOBIN 31.3 pg (27.0-33.0); MEAN CORPUSCULAR HGB CONC 33.4 g/dl (32.0-36.5); MEAN CORPUSCULAR VOLUME 93.7 fl (80.0-96.0); MONO # 0.4 10^3/uL (0.0-0.8); MONO % 10.4 % (2.0-8.0); NEUTROPHILS # 2.2 10^3/uL (1.5-8.5); NEUTROPHILS % 53.1 % (36.0-66.0); PLATELET COUNT, AUTOMATED 168 10^3/uL (150-450); RED BLOOD COUNT 3.48 10^6/uL (4.00-5.40); WHITE BLOOD COUNT 4.1 10^3/uL (4.0-10.0)
[2021-08-10] MEDS: LOPERAMIDE 2 MG CAPLET PO PRN ×2 (06:53→08:48)
[2021-08-10 07:02] LABS: HEMOGLOBIN 10.9 g/dl (12.0-15.5)
[2021-08-10 07:03] LABS: INR 1.12; PROTHROMBIN TIME 14.9 SECONDS (12.7-14.5)
[2021-08-10 07:04] LABS: PARTIAL THROMBOPLASTIN TIME 39.9 SECONDS (25.9-37.0)
[2021-08-10 07:23] LABS: ALBUMIN 2.8 GM/DL (3.2-5.2); ALT/SGPT 28 U/L (12-78); BILIRUBIN,DIRECT 0.1 MG/DL (0.0-0.2); BILIRUBIN,TOTAL 0.5 MG/DL (0.2-1.0); BLOOD UREA NITROGEN 9 MG/DL (7-18); CALCIUM LEVEL 7.5 MG/DL (8.5-10.1); CARBON DIOXIDE LEVEL 21 MEQ/L (21-32); CHLORIDE LEVEL 109 MEQ/L (98-107); CREATININE FOR GFR 0.61 MG/DL (0.55-1.30); FERRITIN 212 NG/ML (8-252); GLOMERULAR FILTRATION RATE > 60.0 (>51); GLUCOSE, FASTING 186 MG/DL (70-100); LDH LACTATE DEHYDROGENASE 194 U/L (84-246); MAGNESIUM LEVEL 2.1 MG/DL (1.8-2.4); NT-PRO BNP 128 PG/ML (<125); POTASSIUM SERUM 3.4 MEQ/L (3.5-5.1); SODIUM LEVEL 137 MEQ/L (136-145); TOTAL PROTEIN 5.6 GM/DL (6.4-8.2)
[2021-08-10] MEDS: DESMOPRESSIN ACETATE 0.1 MG TAB PO SCH (08:47)
[2021-08-10] MEDS: ASPIRIN 81MG ENTERIC TABLET PO SCH (08:47)
[2021-08-10] MEDS: HumaLOG INSULIN (NovoLOG) PER UNIT SC SCH (08:56)
== END 2021-08-10 09:30 | disposition home or self-care (01) ==
LOC: M ED 10:42 → M ED INP 10:43 → ENRESERV 16:30 → M 4MAIN 20:54
PROVIDERS: ADMIT Internal Medicine; ATTEND Internal Medicine
DX: U07.1 COVID-19 (principal); R00.0 Tachycardia, unspecified; E86.0 Dehydration; Z85.850 Personal history of malignant neoplasm of thyroid; E11.9 Type 2 diabetes mellitus without complications; C16.9 Malignant neoplasm of stomach, unspecified; Z79.899 Other long term (current) drug therapy; R53.83 Other fatigue; E03.9 Hypothyroidism, unspecified; E66.9 Obesity, unspecified; Z79.82 Long term (current) use of aspirin; Z79.4 Long term (current) use of insulin; Z88.1 Allergy status to other antibiotic agents
CPT/HCPCS: 36415; 36600; 70450; 71045; 80048; 80076; 81001; 82550; 82728; 82803; 83036; 83605; 83615; 83735; 83880; 84145; 84439; 84443; 84484; 85025; 85379; 85384; 85610; 85730; 86140; 87040; 87631; 93005; 93041; 96361; 96365; 96372; 96374; 96375; 96376; 97116; 97161; 99285; J0696; J1650; J2405